=== PATIENT | male | born 1985 | race Two or more races ===

== ENCOUNTER 2019-05-05 14:45 | Emergency (ER) | payer SELFPAY ==
[~2019-05-05] VITALS: Ht 182.9 cm; Wt 122.5 kg
[2019-05-05 15:30] VITALS: BP 147/88
== END 2019-05-05 16:15 | disposition home or self-care (01) ==
LOC: ER 14:55
DX: F41.1 Generalized anxiety disorder (principal)

== ENCOUNTER 2023-11-21 13:00 | Emergency (ER) | payer SELFPAY ==
[~2023-11-21] VITALS: Ht 182.9 cm; Wt 114.7 kg
[2023-11-21 16:16] VITALS: BP 137/87; PULSE 75; RESP 16; TEMP 98.1; O2SAT 98
== END 2023-11-21 16:18 | disposition home or self-care (01) ==
LOC: ER 13:00
DX: Z02.79 Encounter for issue of other medical certificate (principal); V98.8XXA Other specified transport accidents, initial encounter; Y93.89 Activity, other specified; Y92.89 Other specified places as the place of occurrence of the external cause; Y99.8 Other external cause status